=== PATIENT | male | born 1970 | race Caucasian/White ===

== ENCOUNTER → 2021-11-04 | Outpatient (CLI) | payer MEDICARE | END | disposition home or self-care (01) | LOC: RAH 12:07 | PROVIDERS: ATTEND Nurse Practitioner Acute Care | DX: S32.409A Unspecified fracture of unspecified acetabulum, initial encounter for closed fracture (principal); S72.90XA Unspecified fracture of unspecified femur, initial encounter for closed fracture; X58.XXXA Exposure to other specified factors, initial encounter; Y93.89 Activity, other specified; Y92.89 Other specified places as the place of occurrence of the external cause; Y99.8 Other external cause status | CPT/HCPCS: 72192 ==